=== PATIENT | male | born 1995 | race Caucasian/White ===

== ENCOUNTER → 2016-09-02 | Outpatient (CLI) | payer OTHER ==
[2016-09-02 15:13] LABS: Anisocytosis Slight; Basophils % (A) 0 %; CH 21.8; Eosinophils # (A) 0.2 k/uL (0-0.7); Eosinophils % (A) 3 %; HDW 2.78; HGB 11.1 gm/dL (13.0-17.5); Hypochromasia Marked; Luc # (Auto) 0.22; Luc % (Auto) 4; Lymphocytes # (A) 1.2 k/uL (1.0-4.8); Lymphocytes % (A) 19 %; MCH 22.7 pg (25.0-35.0); MCHC 29.2 g/dL (31.0-37.0); MCV 77.9 fL (80.0-100.0); Mean Platelet Volume 7.9; Microcytosis Slight; Monocytes # (A) 0.7 k/uL (0-1.0); Monocytes % (A) 12 %; Neutrophils # (A) 3.7 k/uL (1.3-7.7); Neutrophils % (A) 62 %; RBC 4.87 m/uL (4.30-5.90); RDW 18.3 % (11.5-15.5); WBC (Perox) 6.66
[2016-09-02 15:18] LABS: ALT 32 U/L (21-72); AST 15 U/L (17-59); Alkaline Phosphatase 68 U/L (38-126); Anion Gap 10 mmol/L; Blood Urea Nitrogen 11 mg/dL (9-20); C Reactive Protein 56.1 mg/L (<10.0); Calcium 9.2 mg/dL (8.4-10.2); Carbon Dioxide 29 mmol/L (22-30); Chloride 103 mmol/L (98-107); Glucose 83 mg/dL (74-99); Iron 13 ug/dL (49-181); Non-African American GFR(MDRD) >60 (>60 ml/min/1.73 sqM); Potassium 4.5 mmol/L (3.5-5.1); Sodium 142 mmol/L (137-145); Total Bilirubin 0.3 mg/dL (0.2-1.3); Total Protein 6.5 g/dL (6.3-8.2)
[2016-09-02 15:26] LABS: % Iron Saturation 3.9 % (20-50); Total Iron Binding Capacity 334 ug/dL (261-462)
== END | disposition home or self-care (01) ==
LOC: LABWHC1 14:04
PROVIDERS: ATTEND Internal Medicine Gastroenterology
DX: K51.00 Ulcerative (chronic) pancolitis without complications (principal)
CPT/HCPCS: 36415; 80053; 82728; 83540; 83550; 84443; 85025; 86140; 86480

== ENCOUNTER 2016-09-25 22:02 | Emergency (ER) | payer OTHER ==
[2016-09-25] MEDS ORDERED: SODIUM CHLORIDE 0.9% 1,000 ML IV STA (22:27)
--- NOTE | 2016-09-25 22:55 | ED ---
General Adult HPI - General Chief complaint: Recheck/Abnormal Lab/Rx Stated complaint: Med reaction Time Seen by Provider: 09/25/16 22:20 Source: patient, RN notes reviewed Mode of arrival: wheelchair Limitations: no limitations - History of Present Illness Initial comments: 20-year-old male presents to the emergency department with a chief complaint medication side effect. Patient was recently started on Remeron. Patient states that he had nausea he had lightheadedness. Patient states now he has joint and muscle pain. Patient states that he had been getting worse for the last 2 weeks and was considered. Patient states that he hasn't had any fever chills. Patient admits to a little bit of a rash that he broke out and basic Benadryl that seemed to clear that up. Patient states that today he just is having hard time even moving his arms due to pains without that he should be evaluated. Patient denies any recent fever, chills, shortness of breath, chest pain, back pain, abdominal pain, nausea vomiting, numbness or tingling, dysuria or hematuria, constipation or diarrhea, headaches or visual changes, or any other current symptoms. - Related Data Home Medications Medication Instructions Recorded Confirmed Multivitamin [Men's Multi-Vitamin] 1 tab PO DAILY 09/17/16 09/25/16 Acetaminophen Tab [Tylenol Tab] 650 mg PO Q6H PRN 09/25/16 09/25/16 Remicade(Unknown Dose) 1 dose IVPB DIRECTED 09/25/16 09/25/16 Allergies Allergy/AdvReac Type Severity Reaction Status Date / Time azathioprine [From Imuran] Allergy Nausea & Verified 09/25/16 22:44 Vomiting azathioprine sodium Allergy Nausea & Verified 09/25/16 22:44 [From Imuran] Vomiting piperacillin sodium Allergy Rash/Hives Verified 09/25/16 22:32 [From Zosyn] soy Allergy Nausea & Verified 09/25/16 22:44 Vomiting tazobactam sodium Allergy Rash/Hives Verified 09/25/16 22:32 [From Zosyn] Review of Systems ROS Statement: Those systems with pertinent positive or pertinent negative responses have been documented in the HPI. ROS Other: All systems not noted in ROS Statement are negative. Past Medical History Additional Past Medical History / Comment(s): Pt has hx of chrons disease with chronic diarrhea and occasional blood in stools. Other HX: COLITIS, ulcerative colitis, anemia, hypoalbuminemia, ketonuric. History of Any Multi-Drug Resistant Organisms: None Reported Past Surgical History: Appendectomy, Tonsillectomy Additional Past Surgical History / Comment(s): Multiple colonoscopies, wisdom teeth extractions. Past Anesthesia/Blood Transfusion Reactions: No Reported Reaction Additional Past Anesthesia/Blood Transfusion Reaction / Comment(s): Pt has received blood before without reaction. Past Psychological History: No Psychological Hx Reported Additional Psychological History / Comment(s): Pt resides with his mother and brother. He is independent. He drives. Smoking Status: Never smoker Past Alcohol Use History: Occasional Past Drug Use History: None Reported - Past Family History Mother Family Medical History: No Reported History Additional Family Medical History / Comment(s): BROKE HER BACK Father Family Medical History: Diabetes Mellitus Additional Family Medical History / Comment(s): Father is 51 yrs old. General Exam - General Exam Comments Initial Comments: General: The patient is awake and alert, in no distress, and does not appear acutely ill. Eye: Pupils are equal, round and reactive to light, extra-ocular movements are intact; there is normal conjunctiva bilaterally. No signs of icterus. Ears, nose, mouth and throat: There are moist mucous membranes. Neck: The neck is supple, there is no tenderness. Cardiovascular: There is a regular rate and rhythm. No murmur, rub or gallop is appreciated. Respiratory: Lungs are clear to auscultation, respirations are non-labored, breath sounds are equal. No wheezes, stridor, rales, or rhonchi. Gastrointestinal: Soft, non-distended, non-tender abdomen without masses or organomegaly noted. There is no rebound or guarding present. No CVA tenderness. Bowel sounds are unremarkable. Back: There is no tenderness to palpation in the midline. There is no obvious deformity. No rashes noted. Musculoskeletal: Normal ROM, no tenderness, There is no pedal edema. There is no calf tenderness or swelling. Sensation intact. Pulses equal bilaterally 2+. Neurological: CN II-XII intact, There are no obvious motor or sensory deficits. Coordination appears grossly intact. Speech is normal. Skin: Skin is warm and dry and no rashes or lesions are noted. Psychiatric: Cooperative, appropriate mood & affect, normal judgment. Limitations: no limitations Course Vital Signs 09/25/16 22:22 Temperature 98.3 F Pulse Rate 108 H Respiratory 18 Rate Blood Pressure 140/87 O2 Sat by Pulse 100 Oximetry Medical Decision Making - Medical Decision Making 20 yo male presents to the ER with cc of medication side effects. This time patient's most common symptom is arthralgia he complains of left elbow right hip left knee pain. This time we discussed this is a side effect to the medication. At this time patient's laboratory shows a mild anemia other than that does appear to be appropriate. At this time we did discuss following up with a doctor in the morning the office opens at 9 AM we dissected denies to call that time. We did discuss using Motrin Tylenol for pain control and return parameters. Personal questions were answered. He will be discharged. - Lab Data Result diagrams: 09/25/16 22:30 09/25/16 22:30 Lab Results 09/25/16 09/25/16 Range/Units 22:30 22:30 WBC 8.7 (3.8-10.6) k/uL RBC 5.44 (4.30-5.90) m/uL Hgb 12.4 L (13.0-17.5) gm/dL Hct 42.4 (39.0-53.0) % MCV 77.9 L (80.0-100.0) fL MCH 22.8 L (25.0-35.0) pg MCHC 29.2 L (31.0-37.0) g/dL RDW 18.4 H (11.5-15.5) % Plt Count 215 (150-450) k/uL Neutrophils % 72 % Lymphocytes % 18 % Monocytes % 5 % Eosinophils % 2 % Basophils % 0 % Neutrophils # 6.3 (1.3-7.7) k/uL Lymphocytes # 1.5 (1.0-4.8) k/uL Monocytes # 0.5 (0-1.0) k/uL Eosinophils # 0.1 (0-0.7) k/uL Basophils # 0.0 (0-0.2) k/uL Hypochromasia Marked Anisocytosis Slight Microcytosis Slight Sodium 138 (137-145) mmol/L Potassium 4.2 (3.5-5.1) mmol/L Chloride 101 (98-107) mmol/L Carbon Dioxide 28 (22-30) mmol/L Anion Gap 9 mmol/L BUN 13 (9-20) mg/dL Creatinine 1.10 (0.66-1.25) mg/dL Est GFR (MDRD) Af Amer >60 (>60 ml/min/1.73 sqM) Est GFR (MDRD) Non-Af >60 (>60 ml/min/1.73 sqM) Glucose 93 (74-99) mg/dL Calcium 9.0 (8.4-10.2) mg/dL Magnesium 1.7 (1.6-2.3) mg/dL Total Bilirubin 0.4 (0.2-1.3) mg/dL AST 15 L (17-59) U/L ALT 35 (21-72) U/L Alkaline Phosphatase 68 (38-126) U/L Total Protein 6.9 (6.3-8.2) g/dL Albumin 3.8 (3.5-5.0) g/dL Disposition Clinical Impression: Medication side effect Disposition: HOME SELF-CARE Condition: Stable Instructions: Mirtazapine (By mouth) Additional Instructions: Please use medication as discussed. Please follow up with family doctor if symptoms have not improved over the next two days. Please return to the emergency room if your symptoms increase or worsen or for any other concerns. Referrals: None,Stated [Primary Care Provider] - 1-2 days Jael Bobby MD [STAFF PHYSICIAN] - 1-2 days Time of Disposition: 23:37
[2016-09-25] MEDS ORDERED: KETOROLAC 30 MG/ML 1 ML VIAL IVP STA (22:56)
[2016-09-25 23:06] LABS: Anisocytosis Slight; Basophils % (A) 0 %; CH 22.6; CHCM 29.1; Eosinophils # (A) 0.1 k/uL (0-0.7); Eosinophils % (A) 2 %; HCT 42.4 % (39.0-53.0); HDW 2.87; HGB 12.4 gm/dL (13.0-17.5); Hypochromasia Marked; Luc # (Auto) 0.33; Luc % (Auto) 4; Lymphocytes # (A) 1.5 k/uL (1.0-4.8); Lymphocytes % (A) 18 %; MCH 22.8 pg (25.0-35.0); MCHC 29.2 g/dL (31.0-37.0); MCV 77.9 fL (80.0-100.0); Mean Platelet Volume 7.1; Microcytosis Slight; Monocytes # (A) 0.5 k/uL (0-1.0); Monocytes % (A) 5 %; Neutrophils # (A) 6.3 k/uL (1.3-7.7); Neutrophils % (A) 72 %; RBC 5.44 m/uL (4.30-5.90); RDW 18.4 % (11.5-15.5); WBC 8.7 k/uL (3.8-10.6); WBC (Perox) 8.67
[2016-09-25 23:18] LABS: ALT 35 U/L (21-72); AST 15 U/L (17-59); Alkaline Phosphatase 68 U/L (38-126); Anion Gap 9 mmol/L; Blood Urea Nitrogen 13 mg/dL (9-20); Carbon Dioxide 28 mmol/L (22-30); Chloride 101 mmol/L (98-107); Glucose 93 mg/dL (74-99); Magnesium 1.7 mg/dL (1.6-2.3); Non-African American GFR(MDRD) >60 (>60 ml/min/1.73 sqM); Potassium 4.2 mmol/L (3.5-5.1); Sodium 138 mmol/L (137-145); Total Bilirubin 0.4 mg/dL (0.2-1.3); Total Protein 6.9 g/dL (6.3-8.2)
--- NOTE | 2016-09-25 23:55 | ED ---
Medical Decision Making - Medical Decision Making Upon discharge patient was found to be febrile. This time we will test for influenza. Patient is tested negative for influenza. We discussed patient most likely has a viral-like syndrome on top of the possible side effects. We did discuss follow-up. - Lab Data Result diagrams: 09/25/16 22:30 09/25/16 22:30 Lab Results 09/25/16 09/25/16 09/26/16 Range/Units 22:30 22:30 00:02 WBC 8.7 (3.8-10.6) k/uL RBC 5.44 (4.30-5.90) m/uL Hgb 12.4 L (13.0-17.5) gm/dL Hct 42.4 (39.0-53.0) % MCV 77.9 L (80.0-100.0) fL MCH 22.8 L (25.0-35.0) pg MCHC 29.2 L (31.0-37.0) g/dL RDW 18.4 H (11.5-15.5) % Plt Count 215 (150-450) k/uL Neutrophils % 72 % Lymphocytes % 18 % Monocytes % 5 % Eosinophils % 2 % Basophils % 0 % Neutrophils # 6.3 (1.3-7.7) k/uL Lymphocytes # 1.5 (1.0-4.8) k/uL Monocytes # 0.5 (0-1.0) k/uL Eosinophils # 0.1 (0-0.7) k/uL Basophils # 0.0 (0-0.2) k/uL Hypochromasia Marked Anisocytosis Slight Microcytosis Slight Sodium 138 (137-145) mmol/L Potassium 4.2 (3.5-5.1) mmol/L Chloride 101 (98-107) mmol/L Carbon Dioxide 28 (22-30) mmol/L Anion Gap 9 mmol/L BUN 13 (9-20) mg/dL Creatinine 1.10 (0.66-1.25) mg/dL Est GFR (MDRD) Af Amer >60 (>60 ml/min/1.73 sqM) Est GFR (MDRD) Non-Af >60 (>60 ml/min/1.73 sqM) Glucose 93 (74-99) mg/dL Calcium 9.0 (8.4-10.2) mg/dL Magnesium 1.7 (1.6-2.3) mg/dL Total Bilirubin 0.4 (0.2-1.3) mg/dL AST 15 L (17-59) U/L ALT 35 (21-72) U/L Alkaline Phosphatase 68 (38-126) U/L Total Protein 6.9 (6.3-8.2) g/dL Albumin 3.8 (3.5-5.0) g/dL Influenza Type A RNA Not Detected (Not Detectd) Influenza Type B (PCR) Not Detected (Not Detectd) Disposition Clinical Impression: Medication side effect, Viral syndrome Disposition: HOME SELF-CARE Condition: Stable Instructions: Infliximab (By injection) Additional Instructions: Please use medication as discussed. Please follow up with family doctor if symptoms have not improved over the next two days. Please return to the emergency room if your symptoms increase or worsen or for any other concerns. Referrals: Jael Bobby MD [STAFF PHYSICIAN] - 1-2 days None,Stated [Primary Care Provider] - 1-2 days Time of Disposition: 00:39
[2016-09-26 00:47] VITALS: BP 132/68; PULSE 86; RESP 18; TEMP 100.1
== END 2016-09-26 00:52 | disposition home or self-care (01) ==
LOC: EC 22:02
DX: M25.551 Pain in right hip (principal); M25.522 Pain in left elbow; M25.562 Pain in left knee; R11.0 Nausea; R42 Dizziness and giddiness; R21 Rash and other nonspecific skin eruption; T43.025A Adverse effect of tetracyclic antidepressants, initial encounter; Z79.899 Other long term (current) drug therapy; Z88.8 Allergy status to other drugs, medicaments and biological substances; Z88.1 Allergy status to other antibiotic agents; Z87.19 Personal history of other diseases of the digestive system
CPT/HCPCS: 36415; 80053; 83735; 85025; 87502; 99283; 96374; 96361; J1885

== ENCOUNTER → 2016-12-26 | Outpatient (CLI) | payer OTHER ==
[2016-12-26 14:52] LABS: Anisocytosis Slight; Basophils % (A) 0 %; CH 24.6; Eosinophils # (A) 0.2 k/uL (0-0.7); Eosinophils % (A) 3 %; HCT 42.8 % (39.0-53.0); HDW 2.53; HGB 13.3 gm/dL (13.0-17.5); Hypochromasia Slight; Luc # (Auto) 0.19; Luc % (Auto) 3; Lymphocytes # (A) 1.1 k/uL (1.0-4.8); Lymphocytes % (A) 18 %; MCH 24.8 pg (25.0-35.0); MCHC 31.1 g/dL (31.0-37.0); MCV 79.6 fL (80.0-100.0); Mean Platelet Volume 8.3; Microcytosis Slight; Monocytes # (A) 0.5 k/uL (0-1.0); Monocytes % (A) 8 %; Neutrophils # (A) 3.8 k/uL (1.3-7.7); Neutrophils % (A) 67 %; RBC 5.38 m/uL (4.30-5.90); WBC 5.8 k/uL (3.8-10.6); WBC (Perox) 5.71
[2016-12-26 15:12] LABS: ALT 33 U/L (21-72); AST 20 U/L (17-59); Alkaline Phosphatase 82 U/L (38-126); Anion Gap 7 mmol/L; Blood Urea Nitrogen 16 mg/dL (9-20); C Reactive Protein 20.3 mg/L (<10.0); Calcium 9.5 mg/dL (8.4-10.2); Carbon Dioxide 29 mmol/L (22-30); Chloride 104 mmol/L (98-107); Cholesterol 109 mg/dL (<200); GGT 24 U/L (15-73); Glucose 86 mg/dL (74-99); HDL Cholesterol 49 mg/dL (40-60); Iron 34 ug/dL (49-181); Non-African American GFR(MDRD) >60 (>60 ml/min/1.73 sqM); Potassium 4.7 mmol/L (3.5-5.1); Sodium 140 mmol/L (137-145); Total Bilirubin 0.4 mg/dL (0.2-1.3); Total Protein 6.9 g/dL (6.3-8.2); Triglycerides 88 mg/dL (<150)
[2016-12-26 15:19] LABS: % Iron Saturation 9.9 % (20-50); Total Iron Binding Capacity 343 ug/dL (261-462)
[2016-12-26 15:44] LABS: Estradiol 33 pg/mL (5-66); Follicle Stimulating Hormone <0.7 mIU/mL (1.6-9.7); Prostate Specific Antigen 3.01 ng/mL (0.00-4.00)
[2016-12-26 17:20] LABS: Erythrocyte Sedimentation Rate 5 mm/hr (0-15)
[2016-12-26 18:51] LABS: DHEA Sulfate 80.8 ug/dL (34.5-568.9)
[2016-12-26 19:20] LABS: Sex Horm Bind Glob 29.7 nmol/L (11.0-57.0)
[2016-12-26 19:47] LABS: ANA w/Reflex to Titer NEGATIVE (NEGATIVE)
[2016-12-26 21:38] LABS: Hemoglobin A1C 5.5 % (4.2-6.1)
[2016-12-29 08:14] LABS: Mis test requested (Blood) Tumor Necrosis
== END ==
LOC: LABWHC1 14:01
PROVIDERS: ATTEND Internal Medicine Hematology & Oncology
DX: D64.9 Anemia, unspecified (principal); K51.80 Other ulcerative colitis without complications; E29.1 Testicular hypofunction; R53.83 Other fatigue
CPT/HCPCS: 36415; 80053; 80061; 82164; 82306; 82533; 82627; 82670; 82728; 82977; 83001; 83036; 83520; 83540; 83550; 83735; 84153; 84270; 84305; 84403; 84443; 84482; 85025; 85652; 86038; 86060; 86140